=== PATIENT | male | born 1985 | race Caucasian/White ===

== ENCOUNTER 2019-11-04 10:54 | Emergency (ER) | payer SELFPAY ==
[2019-11-04 10:55] VITALS: BP 164/98; PULSE 104; RESP 18; TEMP 36.9; O2SAT 94; BMI 27.0
--- NOTE | 2019-11-04 10:58 | ED_ITS ---
Entered by Ara Cuenca acting as scribe for Norma Hunt Nov 04, 2019 10:54 HPI - General Adult General: Chief complaint: Upper Respiratory Infection Stated complaint: cough and aches Time Seen by Provider: 11/04/19 10:59 Source: patient and RN notes reviewed Mode of arrival: ambulatory Limitations: no limitations History of Present Illness: HPI narrative: 34 yo male presents to ED with complaints of congestion and achy joints. He is subjectively febrile. He said he has had this for 2 days. 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 MD complaint: flu-like symptoms Onset (ago): day(s) (2) Location: chest Radiation: non-radiation Severity: mild Quality: aching (joints) Pain Consistency: constant Relieving factors: none Exacerbating factors: none Associated symptoms: Reports cough, malaise, nausea and other (joint aches, subjectively febrile, chest congestion); Deny chest pain, confusion, dyspnea, headache(s), rash, palpitations, syncope or vomiting Treatments prior to arrival: none Review of Systems General: Reports: other (negative unless marked) Const: Reports: malaise Eyes: Denies: change in vision or blurry vision ENMT: Denies: throat pain, painful swallowing, hoarseness, ear pain, ear discharge, Change in hearing or nasal discharge Card: Denies: chest pain, palpitations, irregular heart rhythm, syncope, pre- syncope, shortness of breath on exertion or shortness of breath when lying down Resp: Denies: shortness of breath, productive cough, non-productive cough, wheezing or coughing up blood GI: Reports: nausea; Denies: abdominal pain, vomiting, vomiting blood, coffee grounds in vomit, diarrhea, constipation, cramping, blood in stool or black tarry stool : Denies: flank pain, difficulty urinating, painful urination, urinary frequency, urinary urgency, decreased urine ouput, urinary incontinence or blood in urine Musc: Denies: neck pain, back pain, extremity pain, extremity swelling, joint swelling, joint warmth or joint stiffness Skin/Breast: Denies: rash, skin tenderness or yellow skin Neuro: Denies: headache, numbness in extremities, weakness in extremities, changes in sensation, lack of coordination, difficulty walking, dizziness, vertigo or confusion Endo: Denies: excessive thirst, tired all the time, cold intolerance, excessive sweating, flushing or hot flashes Papito/Lymph: Denies: easy bruising, easy bleeding, petechiae or enlarged lymph nodes All/Imm: Denies: hives, throat swelling, tongue swelling, facial swelling or acute wheezing PFSH ED PFSH: Social History (Updated 10/27/19 @ 13:56 by MARY LOU Forde) Smoking and tobacco status: current every day smoker Alcohol intake: current Alcohol intake frequency: holidays/special occasions only History of recent travel: No Current gender identity: Male Physical Exam Const: COMMON NORMALS: no apparent distress, oriented x3, no limitations, healthy appearing and well nourished EXAM LIMITATIONS: no altered mental status GENERAL APPEARANCE: cooperative, well kempt and well developed ORIENTATION/CONSCIOUSNESS: Yes awake HENMT: COMMON NORMALS: normocephalic, head/scalp atraumatic, hearing grossly normal bilaterally, external ears normal, EAC's normal, external nose normal and moist oral mucous membranes HEAD & SCALP: normal to inspection, normocephalic and atraumatic FACE & SINUS: normal facial exam and face symmetric NOSE: external nose normal and nares normal EXTERNAL EAR: Yes external ears normal EXTERNAL AUDITORY CANAL: EAC's normal MOUTH: oral and palatal mucosa normal and tongue normal Eye: COMMON NORMALS: PERRL, EOMs intact bilaterally, conjunctivae normal and no scleral icterus GENERAL EYE: normal appearance of both eyes and normal light reflex CONJUNCTIVA: Yes conjunctivae normal SCLERA: sclerae normal CORNEA: Yes corneas normal PUPIL: Yes PERRL DIRECT OPHTHALMOSCOPY: Yes normal light reflex Neck/C-Spine: COMMON NORMALS: full ROM, no lymphadenopathy, supple, no meningeal signs and no JVD GENERAL: Yes normal visual inspection and Yes trachea midline CERVICAL SPINE: Yes cervical ROM normal Chest: COMMONS NORMALS: inspection of chest normal and palpation of chest normal Resp: COMMON NORMALS: normal respiratory effort, no retractions, no use of accessory muscles and clear to auscultation bilaterally EFFORT & INSPECTION: Yes able to speak in complete sentences AUSCULTATION: clear to auscultation bilaterally OTHER: chest congestion Cardio: COMMON NORMALS: no JVD, regular rhythm, S1 normal heart sound, S2 normal heart sound, no gallops, no clicks, no murmurs and no rub JUGULAR VENOUS DISTENTION: no JVD RATE: tachycardic RHYTHM: regular rhythm HEART SOUNDS: S1 normal and S2 normal GI: COMMON NORMALS: soft to palpation, non-tender, no hepatosplenomegaly and no masses INSPECTION: Yes normal to inspection PALPATION: Yes soft and Yes no hepatosplenomegaly : COMMON NORMALS: Yes no CVA tenderness BLADDER/KIDNEY EXAM: Yes no CVA tenderness Back/Pelvis: COMMON NORMALS: no CVA tenderness, thoracic and lumbar spine normal to inspection, no thoracic nor lumbar tenderness and thoraco-lumbar ROM normal Extremity: COMMON NORMALS: normal to inspection, full ROM, normal capillary refill, no joint enlargement, no clubbing, cyanosis or edema and no calf tenderness Neuro: COMMON NORMALS: oriented x3, CN's II-XII intact bilaterally, moves all extremities, no focal motor deficits and no sensory deficits noted MENINGEAL SIGNS: Yes no meningeal signs Psych: COMMON NORMALS: mental status grossly normal, thought process normal, cooperative, affect normal, speech normal and activity/motor behavior normal APPEARANCE: Yes well kempt SPEECH: Yes normal speech THOUGHT PROCESS: normal thought process Skin: COMMON NORMALS: no rashes or lesions noted, skin turgor normal, no jaundice, no petechiae and no mottling GENERAL SKIN EXAM: no rashes or lesions noted and turgor normal Course Vital Signs: Vital signs: Vital Signs Temperature 98.4 F 11/04/19 10:55 Pulse Rate 104 H 11/04/19 10:55 Respiratory Rate 18 11/04/19 10:55 Blood Pressure 164/98 11/04/19 10:55 Pulse Oximetry 94 11/04/19 10:55 MDM - General Adult MDM Narrative: Medical decision making narrative: The case was reviewed with the [facility] department Dr. Brown. The patient needs to stay in his home for the next 10 to 14 days for self quarantine. His was present with him I have informed her she needs to do the same. We will contact him if he test positive for the code with 19 virus. At this time I will place him on doxycycline as he he appears to have some bibasilar infiltrates to my eye although this was not read this way by the radiologist. The patient understands these instructions and states he will follow through with them as instructed. Lab Data: Labs: Lab Results 11/04/19 11/04/19 11/04/19 Range/Units 11:33 11:45 11:45 WBC 14.4 H (4.0-10.0) 10^3/ uL RBC 5.30 (4.1-5.3) 10^6/u L Hgb 15.0 (11.7-16.6) g/dL Hct 43.7 (42.0-52.0) % MCV 82.5 (80-94) fL MCH 28.3 (28.0-34.0) pg MCHC 34.3 (30.0-36.0) g/dL RDW 12.9 (12.1-15.1) % Plt Count 247 (130-400) 10^3/c mm MPV 10.9 H (7.4-10.4) fL Neut % (Auto) 77.9 % Lymph % (Auto) 12.6 % [place] % (Auto) 7.9 % Eos % (Auto) 0.6 % Baso % (Auto) 0.4 % Neut # (Auto) 11.2 H (1.8-7.7) 10^3/u L Lymph # (Auto) 1.8 (0.8-4.8) 10^3/u L [place] # (Auto) 1.1 H (0.2-0.9) 10^3/u L Eos # (Auto) 0.1 (0.0-0.8) 10^3/u L Baso # (Auto) 0.1 (0.0-0.1) 10^3/u L Nucleated RBC % (a uto) 0 % Nucleated RBCs # 0.0 /100WBC Sodium 136 (136-145) mmol/L Potassium 4.0 (3.5-5.1) mmol/L Chloride 98 (98-107) mmol/L Carbon Dioxide 25 (22-29) mmol/L Anion Gap 17.0 (5-19) BUN 14 (6-20) mg/dL Creatinine 0.9 (0.7-1.2) mg/dL GFR Calculation 95.5 (90-130) mL/min Glucose 96 (65-115) mg/dL Calculated Osmolal ity 278 L (285-295) mOsm/k g Calcium 10.0 (8.5-10.5) mg/dL Total Bilirubin 0.7 (0.15-1.2) mg/dL AST 20 (0-40) U/L ALT 29 (0-41) U/L Alkaline Phosphata se 77 (40-130) IU/L Total Protein 7.9 (6.6-8.7) g/dL Albumin 4.7 (3.5-5.2) g/dL Globulin 3.2 (1.3-4.6) g/dL Influenza Type A A g (Negative) POC Influenza B Ag (Negative) RSV Antigen Negative (Negative) 11/04/19 Range/Units 11:45 WBC (4.0-10.0) 10^3/ uL RBC (4.1-5.3) 10^6/u L Hgb (11.7-16.6) g/dL Hct (42.0-52.0) % MCV (80-94) fL MCH (28.0-34.0) pg MCHC (30.0-36.0) g/dL RDW (12.1-15.1) % Plt Count (130-400) 10^3/c mm MPV (7.4-10.4) fL Neut % (Auto) % Lymph % (Auto) % [place] % (Auto) % Eos % (Auto) % Baso % (Auto) % Neut # (Auto) (1.8-7.7) 10^3/u L Lymph # (Auto) (0.8-4.8) 10^3/u L [place] # (Auto) (0.2-0.9) 10^3/u L Eos # (Auto) (0.0-0.8) 10^3/u L Baso # (Auto) (0.0-0.1) 10^3/u L Nucleated RBC % (a uto) % Nucleated RBCs # /100WBC Sodium (136-145) mmol/L Potassium (3.5-5.1) mmol/L Chloride (98-107) mmol/L Carbon Dioxide (22-29) mmol/L Anion Gap (5-19) BUN (6-20) mg/dL Creatinine (0.7-1.2) mg/dL GFR Calculation (90-130) mL/min Glucose (65-115) mg/dL Calculated Osmolal ity (285-295) mOsm/k g Calcium (8.5-10.5) mg/dL Total Bilirubin (0.15-1.2) mg/dL AST (0-40) U/L ALT (0-41) U/L Alkaline Phosphata se (40-130) IU/L Total Protein (6.6-8.7) g/dL Albumin (3.5-5.2) g/dL Globulin (1.3-4.6) g/dL Influenza Type A A g Negative (Negative) POC Influenza B Ag Negative (Negative) RSV Antigen (Negative) Imaging Data^: CXR: Radiologist's impression: [place] [address] XRay Report Signed Patient: David Rosario #: [id number] : 1985Acct#:[id number] Age/Sex: 34 / MADM Date: 11/04/19 Loc: [facility]/Bed: Attending Dr: Ordering Provider/Ordering MD: Norma Hunt DO Date of Service: 11/04/19 Procedure(s): XR chest 1V portable [id number] Accession Number(s): [id number] Report Number: [id number] WS: [id number] Portable AP upright chest, 11/04/2019 Clinical Data: cough Comparison: Portable chest, 02/07/2019. Findings: No nodules, masses or effusions are seen. The heart is normal. The pulmonary vascularity is not increased. No pneumonia or pneumothorax is seen. XR/XR chest 1V portable [id number] Impression: Negative chest. Dictated By:Rosario Willis MD Signed By:Rosario Willis MDSigned Date/Time:11/04/19 1136 DD/ Discharge Plan Discharge Patient Disposition: Home, Self-Care Clinical Impression: Viral infection Condition: Stable Prescriptions: No Action pantoprazole 40 mg tablet,delayed release (DR/EC) 40 mg PO QAM RF: 0 duloxetine 40 mg capsule,delayed release(DR/EC) 40 mg PO ONCE 90 Days Qty: 90 RF: 3 Discharge Orders: Discharge Order (Routine); Ordered 11/04/19 Ordered By: Norma Hunt Referrals: Martin Bhat MD [Primary Care Provider] - 2 weeks Discharge Diet: Advance as tolerated Discharge Activity: Increase activity as tolerated Patient Instructions: Viral Pneumonia (ED), Viral Syndrome (ED) Activity Restrictions/Additional Instructions: Please return to the ER immediately for any of the signs or symptoms listed on your discharge instruction sheets, worsening/changing of your symptoms, you are not getting better as quickly as expected, or for ANY other cause or concerns. Stay quarantined in your home along with your for the next 10 to 14 days. You will be contacted at that phone number provided if you test positive for COVID 19. Return to the ER if you worsen, become short of breath, began to vomit or have any other concerns. Coding Level of Care Code ED Lan Specialist for Chg Fwd Exam Comprehensive The documentation recorded by the [facility]tt Valerie R, accurately reflects the service I personally performed and the decisions made by me, Norma Hunt Nov 04, 2019 10:54
--- NOTE | 2019-11-04 11:09 | XR_ITS ---
WS: [id number] Portable AP upright chest, 11/04/2019 Clinical Data: cough Comparison: Portable chest, 02/07/2019. Findings: No nodules, masses or effusions are seen. The heart is normal. The pulmonary vascularity is not increased. No pneumonia or pneumothorax is seen. XR/XR chest 1V portable [id number] Impression: Negative chest.
[2019-11-04 11:55] LABS: Basophils # 0.1 10^3/uL (0.0-0.1); Basophils % 0.4 %; Eosinophils # 0.1 10^3/uL (0.0-0.8); Eosinophils % 0.6 %; Hematocrit 43.7 % (42.0-52.0); Lymphocytes # 1.8 10^3/uL (0.8-4.8); Lymphocytes % 12.6 %; Mean Corpuscular HGB Conc 34.3 g/dL (30.0-36.0); Mean Corpuscular Hemoglobin 28.3 pg (28.0-34.0); Mean Corpuscular Volume 82.5 fL (80-94); Mean Platelet Volume 10.9 fL (7.4-10.4); Monocytes # 1.1 10^3/uL (0.2-0.9); Monocytes % 7.9 %; Neutrophils # 11.2 10^3/uL (1.8-7.7); Neutrophils % 77.9 %; Nucleated Red Blood Cells % 0 %; Platelet Count 247 10^3/cmm (130-400); Red Cell Distribution Width 12.9 % (12.1-15.1); White Blood Count 14.4 10^3/uL (4.0-10.0)
[2019-11-04 12:18] LABS: Influenza A by IFA Negative (Negative); Influenza B by IFA Negative (Negative)
[2019-11-04 12:29] LABS: Alanine Aminotransferase 29 U/L (0-41); Albumin Level 4.7 g/dL (3.5-5.2); Alkaline Phosphatase 77 IU/L (40-130); Aspartate Amino Transferase 20 U/L (0-40); Blood Urea Nitrogen 14 mg/dL (6-20); Carbon Dioxide 25 mmol/L (22-29); Chloride 98 mmol/L (98-107); Globulin 3.2 g/dL (1.3-4.6); Glomerular Filtration Rate 95.5 mL/min (90-130); Glucose 96 mg/dL (65-115); Osmolality Calculated 278 mOsm/kg (285-295); Sodium 136 mmol/L (136-145); Total Bilirubin 0.7 mg/dL (0.15-1.2); Total Protein 7.9 g/dL (6.6-8.7)
[2019-11-04 15:00] VITALS: BP 160/100; PULSE 91; RESP 18; TEMP 37.3; O2SAT 93
== END 2019-11-04 15:03 | disposition home or self-care (01) ==
PROVIDERS: Emergency Provider Emergency Medicine; PCP Internal Medicine
DX: B34.9 Viral infection, unspecified (principal); F17.200 Nicotine dependence, unspecified, uncomplicated
CPT/HCPCS: 12345; 71045; 80053; 85025; 87040; 87420; 87635; 87804; 94799; 99281; 99283

== ENCOUNTER 2019-11-06 17:20 | Emergency (ER) | payer SELFPAY ==
--- NOTE | 2019-11-06 17:27 | PC.NURSE ---
Pt was instructed to come to ED to be swabbed for COVID-19 virus for send out testing. Pt arrived in ambulance bay and nasal swab was performed by this nurse, labeled and sent to lab. Lab filled out appropriate requisition forms with instructions to defer to Dr Borrego for any needs.
[2019-11-15 08:56] LABS: Miscellaneous Test NOT DETECTED
== END 2019-11-06 17:32 | disposition left against medical advice (07) ==
PROVIDERS: Family Medicine; Emergency Provider Emergency Medicine; PCP Internal Medicine
DX: B34.9 Viral infection, unspecified (principal); F17.210 Nicotine dependence, cigarettes, uncomplicated
CPT/HCPCS: 87635; 99281; 99282

== ENCOUNTER 2020-03-24 09:42 | Emergency (ER) | payer SELFPAY ==
[2020-03-24 10:13] VITALS: BP 156/102; PULSE 61; RESP 18; TEMP 36.6; O2SAT 97; BMI 28.5
--- NOTE | 2020-03-24 10:17 | PC.NURSE ---
Due to patient complaint of sore throat. Rapid strep tested ordered and collected at this time. Specimen took to lab.
[2020-03-24 10:58] VITALS: BP 162/100; PULSE 59; RESP 16; O2SAT 97
--- NOTE | 2020-03-24 11:22 | ED_ITS ---
HPI - General Adult General: Chief complaint: General Medical Stated complaint: nausea/sore throat/dizzy Time Seen by Provider: 03/24/20 11:15 History of Present Illness: HPI narrative: Patient states throat still sore and feels nauseated Onset (ago): day(s) Associated symptoms: Deny chest pain, dyspnea, headache(s), nausea, rash or vomiting Review of Systems Const: Denies: fever(s), chills or body aches Eyes: Denies: change in vision or blurry vision ENMT: Reports: throat pain; Denies: nasal congestion Card: Denies: chest pain or dyspnea on exertion Resp: Denies: dyspnea, productive cough or non-productive cough GI: Denies: abdominal pain, nausea or vomiting : Denies: difficulty urinating Musc: Denies: extremity pain Skin/Breast: Denies: rash Neuro: Denies: headache(s) Psych: Denies: anxiety or depression Papito/Lymph: Denies: easy bruising PFSH ED PFSH: Medical History (Updated 03/24/20 @ 11:22 by MABEL Thomas) IBS (irritable bowel syndrome) Social History Smoking and tobacco status: current every day smoker Alcohol intake: current Alcohol intake frequency: holidays/special occasions only History of recent travel: No Current gender identity: Male Physical Exam Const: COMMON NORMALS: no acute distress, average body habitus and patient oriented x3 HENMT: COMMON NORMALS: normocephalic HEAD & SCALP: normal to inspection and normocephalic FACE & SINUS: normal facial exam OTHER: Throat with slight redness no abscesses noted no lymphadenopathy noted Eye: COMMON NORMALS: conjunctivae normal GENERAL EYE: appearance normal, both eyes and all related structures CONJUNCTIVA: Yes conjunctivae normal Neck/C-Spine: COMMON NORMALS: no JVD Chest: COMMONS NORMALS: normal inspection of the chest Resp: COMMON NORMALS: normal respiratory effort and clear to auscultation bilaterally AUSCULTATION: clear to auscultation bilaterally Cardio: COMMON NORMALS: no JVD, regular rate and regular rhythm RATE: regular rate RHYTHM: regular rhythm GI: COMMON NORMALS: Normal to inspection, nondistended, normoactive bowel sounds present Extremity: COMMON NORMALS: normal to inspection and full ROM Neuro: COMMON NORMALS: patient oriented x3 Course Vital Signs: Vital signs: Vital Signs Temperature 97.9 F 03/24/20 10:13 Pulse Rate 59 L 03/24/20 10:58 Respiratory Rate 16 03/24/20 10:58 Blood Pressure 162/100 03/24/20 10:58 Pulse Oximetry 97 03/24/20 10:58 Discharge Plan Discharge Patient Disposition: Home Clinical Impression: Acute sore throat Condition: Stable Prescriptions: New Zofran 4 mg tablet 4 mg PO Q8H PRN (Reason: nausea and vomiting) 3 Days Qty: 10 RF: 0 Lidocaine Viscous 2 % solution 7.5 ml MUCOUS MEM TID PRN (Reason: pain) Qty: 100 RF: 0 No Action pantoprazole 40 mg tablet,delayed release (DR/EC) 40 mg PO QAM RF: 0 duloxetine 40 mg capsule,delayed release(DR/EC) 40 mg PO DAILY RF: 0 Discharge Orders: Discharge Order (Routine); Ordered 03/24/20 Ordered By: Jon Cuba Referrals: Martin Bhat MD [Primary Care Provider] - Discharge Diet: Usual diet Discharge Activity: Increase activity as tolerated Patient Instructions: Pharyngitis (ED) Activity Restrictions/Additional Instructions: Follow-up with medical provider as directed. Take medications as prescribed. Return to the ER or your medical provider if condition worsens. Please read and understand discharge instructions. If any questions ask please. Coding Level of Care Code ED Community Service Officer Coordinator for Natali Fwd Exam Comprehensive
[2020-03-24 12:53] LABS: Rapid Strep A Test Negative (Negative)
== END 2020-03-24 11:47 | disposition home or self-care (01) ==
PROVIDERS: Emergency Provider Nurse Practitioner Family; PCP Internal Medicine
DX: J02.9 Acute pharyngitis, unspecified (principal); F17.210 Nicotine dependence, cigarettes, uncomplicated
CPT/HCPCS: 12345; 87081; 87880; 99281; 99282

== ENCOUNTER → 2020-04-28 11:00 | Outpatient (BNVA) | payer SELFPAY | PROVIDERS: PCP Internal Medicine; Visit Provider Nurse Practitioner Family | DX: J06.9 Acute upper respiratory infection, unspecified (principal); Z20.818 Contact with and (suspected) exposure to other bacterial communicable diseases | CPT/HCPCS: 87635 ==

== ENCOUNTER → 2020-05-24 16:02 | Outpatient (BNVA) | payer OTHER, SELFPAY | PROVIDERS: PCP Internal Medicine; Visit Provider Nurse Practitioner Family | DX: Z11.59 Encounter for screening for other viral diseases (principal); Z20.828 Contact with and (suspected) exposure to other viral communicable diseases | CPT/HCPCS: 87635 ==

== ENCOUNTER → 2020-08-07 11:43 | Outpatient (BNVA) | payer OTHER, SELFPAY | PROVIDERS: PCP Internal Medicine; Visit Provider Nurse Practitioner Family | DX: Z20.828 Contact with and (suspected) exposure to other viral communicable diseases (principal); R43.0 Anosmia; J06.9 Acute upper respiratory infection, unspecified | CPT/HCPCS: 87635 ==

== ENCOUNTER → 2020-10-16 11:52 | Outpatient (BNVA) | payer OTHER, SELFPAY | PROVIDERS: PCP Internal Medicine; Visit Provider Nurse Practitioner Family | DX: Z20.828 Contact with and (suspected) exposure to other viral communicable diseases (principal) | CPT/HCPCS: 87635 ==

== ENCOUNTER 2022-05-27 00:27 | Emergency (ER) | payer OTHER, SELFPAY ==
[2022-05-27 00:34] VITALS: BP 159/85; PULSE 69; RESP 20; TEMP 36.2; O2SAT 100; BMI 28.7
--- NOTE | 2022-05-27 01:13 | ECG_ITS ---
[facility] Test Date: 2022-05-27 Pat Name: David Rosario Department: Room: Gender: Male Ammonium Nitrate Neutralizer: : 1985 Requested By: Cristi Starkey Order Number: [id number] Alvaro MD: Elmer Cabrera M.D. Measurements Intervals Melber Rate: 66 P: 9 AL: 183 QRS: 41 QRSD: 89 T: 55 QT: 382 QTc: 401 Interpretive Statements SINUS RHYTHM Compared to ECG 02/07/2019 09:16:01 Left ventricular hypertrophy no longer present ST (T wave) deviation no longer present Electronically Signed On 05-27-2022 17:38:40 CDT by Elmer Cabrera M.D. [email or web address]
--- NOTE | 2022-05-27 01:14 | XRR_ITS ---
PROCEDURE INFORMATION: Exam: XR Chest Exam date and time: 05/27/2022 1:34 AM Age: 36 years old Clinical indication: Shortness of breath; Chest pressure; Patient HX: Left sided chest pain, shob; Additional info: SOB TECHNIQUE: Imaging protocol: Radiologic exam of the chest. Views: 1 view. COMPARISON: CR XR chest 1V portable [id number] 11/04/2019 11:22 AM FINDINGS: Lungs: Patchy and strandy opacities are present in the lower hemithoraces bilaterally, left prominent than right, findings that may represent basilar atelectasis versus pneumonia. Pleural spaces: Unremarkable. No pleural effusion. No pneumothorax. Heart/Mediastinum: Unremarkable. No cardiomegaly. Bones/joints: Unremarkable. XR/XR chest 1V portable [id number] IMPRESSION: 1. Patchy and strandy opacities in the lung bases bilaterally, left prominent than right may represent atelectasis although a bilateral basilar pneumonia cannot be excluded.
[2022-05-27 01:15] VITALS: BP 131/52; PULSE 76; RESP 18; O2SAT 95
[2022-05-27 01:23] LABS: Basophils # 0.1 10^3/uL (0.0-0.1); Basophils % 0.8 %; Eosinophils # 0.2 10^3/uL (0.0-0.8); Eosinophils % 2.3 %; Hematocrit 48.8 % (42.0-52.0); Hemoglobin 15.9 g/dL (11.7-16.6); Lymphocytes % 30.8 %; Mean Corpuscular HGB Conc 32.6 g/dL (30.0-36.0); Mean Corpuscular Hemoglobin 28.6 pg (28.0-34.0); Mean Corpuscular Volume 87.8 fl (80-94); Monocytes # 0.7 10^3/uL (0.2-0.9); Monocytes % 6.6 %; Neutrophils # 5.76 10^3/uL (1.8-7.7); Neutrophils % 58.9 %; Nucleated Red Blood Cells % 0 %; Platelet Count 282 10^3/cmm (130-400); Red Blood Count 5.56 10^6/uL (4.1-5.3); White Blood Count 9.8 10^3/uL (4.0-10.0)
[2022-05-27 01:31] LABS: D Dimer <= 0.27 ug/mIFEU (0-0.59)
[2022-05-27 01:37] LABS: Lactic Sepsis W/Reflex 1.5 mmol/L (0.5-2.2)
[2022-05-27 01:38] VITALS: BP 128/89; PULSE 66; RESP 20; O2SAT 97
[2022-05-27 01:48] LABS: Anion Gap 17.2 (5-19); Blood Urea Nitrogen 20 mg/dL (6-20); Calcium 10.2 mg/dL (8.5-10.5); Carbon Dioxide 25 mmol/L (22-29); Chloride 100 mmol/L (98-107); Glomerular Filtration Rate 83.6 mL/min (90-130); Glucose 70 mg/dL (65-115); NT Pro B Type Natriuretic Pept 31 pg/mL (0-125); Osmolality Calculated 287 mOsm/kg (285-295); Potassium 4.2 mmol/L (3.5-5.1); Sodium 138 mmol/L (136-145)
[2022-05-27] MEDS: dexamethasone 4 mg/mL INJ 8 MG IVP (02:06)
[2022-05-27] MEDS: ketorolac 30 mg/mL INJ 15 MG IVP (02:09)
[2022-05-27 02:14] VITALS: BP 128/90; PULSE 61; RESP 18; O2SAT 98
[2022-05-27 02:20] LABS: Troponin T (5th) Once 6 ng/L (0-15)
--- NOTE | 2022-05-27 02:30 | ED_ITS ---
HPI - SOB/Dyspnea General: Chief Complaint: Shortness of Breath/Dyspnea Stated Complaint: sob Time Seen by Provider: 05/27/22 00:56 Source: patient History of Present Illness: HPI Narrative: 36-year-old male presenting with some shortness of breath. He splinting to breathe. He noticed this a couple hours before arrival at work. He has been coughing some. He had COVID 3 weeks ago, but did not have much cough or shortness of breath with that. He denies any fever. He states that he has had some left-sided chest discomfort for a couple of weeks that is reproducible on the left side. MD elicited complaint: shortness of breath and pain with inspiration Pertinent past history: other Onset (ago): hour(s) Exacerbating factors: lying flat and exertion Relieving factors: nothing Associated symptoms: Reports chest pain, cough and orthopnea; Deny abdominal pain, chest congestion, diaphoresis, dizziness, fever(s), nausea or vomiting Treatment prior to arrival: none Review of Systems Const: Denies: fever(s) or diaphoresis Card: Reports: chest pain and orthopnea Resp: Denies: chest congestion GI: Denies: abdominal pain, nausea or vomiting Musc: Denies: neck pain or back pain Skin/Breast: Denies: rash Neuro: Denies: dizziness PFS ED PFSH: Medical History (Updated 05/27/22 @ 02:37 by Cristi Chatterjee DO) IBS (irritable bowel syndrome) Social History Smoking and tobacco status: current every day smoker Alcohol intake: current Alcohol intake frequency: holidays/special occasions only History of recent travel: No Current gender identity: Male Physical Exam Const: GENERAL APPEARANCE: cooperative; not ill appearing and not frail appearing HENMT: COMMON NORMALS: normocephalic and atraumatic HEAD & SCALP: normocephalic and atraumatic FACE & SINUS: normal facial exam and face symmetric Eye: COMMON NORMALS: Equal, round and reactive pupils present and EOMs intact bilaterally PUPIL: Yes Equal, round and reactive pupils present Neck/C-Spine: GENERAL: Yes normal visual inspection and Yes trachea midline Chest: COMMONS NORMALS: normal inspection of the chest CHEST: Yes Symmetrical chest wall rise and Yes tenderness (Left mid chest, mid axillary) Resp: COMMON NORMALS: No retractions, No use of accessory muscles and clear to auscultation bilaterally EFFORT & INSPECTION: Yes tachypneic AUSCULTATION: clear to auscultation bilaterally Cardio: COMMON NORMALS: regular rate and regular rhythm RATE: regular rate RHYTHM: regular rhythm GI: COMMON NORMALS: Normal to inspection, nondistended, normoactive bowel sounds present, Soft to palpation and non-tender PALPATION: Yes Soft to palpation Extremity: COMMON NORMALS: no pedal edema Neuro: EDWARD COMA SCALE: document GCS findings Edward coma scale eye opening: Spontaneous Nickerson coma scale verbal response: Orientated Edward coma scale motor response: Obey commands Nickerson coma scale total score: 15 Skin: COMMON NORMALS: no rashes or lesions noted GENERAL SKIN EXAM: no rashes or lesions noted Course Vital Signs: Vital signs: Vital Signs Temperature 97.1 F L 05/27/22 00:34 Pulse Rate 57 L 05/27/22 02:32 Respiratory Rate 18 05/27/22 02:32 Blood Pressure 119/80 05/27/22 02:32 Pulse Oximetry 97 05/27/22 02:32 Oxygen Delivery Me thod 05/27/22 00:34 MDM - SOB/Dyspnea Medical Decision Making Chest x-ray shows some bibasilar atelectasis versus pneumonitis, left worse than right. CBC is normal. BMP is normal. Troponin is 6. EKG is normal with a normal sinus rhythm, normal axis and intervals and no concerning ST elevation. There is some J-point elevation present. Lactic acid is 1.5. D-dimer is nondetectable. He will be treated for pneumonitis. Lab Data : 05/27/22 01:10 05/27/22 01:10 Labs/Radiology: Radiology Impressions Chest X-Ray 05/27/22 01:14 IMPRESSION: 1. Patchy and strandy opacities in the lung bases bilaterally, left prominent than right may represent atelectasis although a bilateral basilar pneumonia cannot be excluded. Laboratory Results WBC 9.8 10^3/uL (4.0-10.0) 05/27/22 01:10 RBC 5.56 10^6/uL (4.1-5.3) H 05/27/22 01:10 Hgb 15.9 g/dL (11.7-16.6) 05/27/22 01:10 Hct 48.8 % (42.0-52.0) 05/27/22 01:10 MCV 87.8 fl (80-94) 05/27/22 01:10 MCH 28.6 pg (28.0-34.0) 05/27/22 01:10 MCHC 32.6 g/dL (30.0-36.0) 05/27/22 01:10 RDW 12.0 % (12.1-15.1) L 05/27/22 01:10 Plt Count 282 10^3/cmm (130-400) 05/27/22 01:10 MPV 11.0 fL (7.4-10.4) H 05/27/22 01:10 Neut % (Auto) 58.9 % 05/27/22 01:10 Lymph % (Auto) 30.8 % 05/27/22 01:10 Frio % (Auto) 6.6 % 05/27/22 01:10 Eos % (Auto) 2.3 % 05/27/22 01:10 Baso % (Auto) 0.8 % 05/27/22 01:10 Neut # (Auto) 5.76 10^3/uL (1.8-7.7) 05/27/22 01:10 Lymph # (Auto) 3.0 10^3/uL (0.8-4.8) 05/27/22 01:10 Frio # (Auto) 0.7 10^3/uL (0.2-0.9) 05/27/22 01:10 Eos # (Auto) 0.2 10^3/uL (0.0-0.8) 05/27/22 01:10 Baso # (Auto) 0.1 10^3/uL (0.0-0.1) 05/27/22 01:10 Nucleated RBC % (auto) 0 % 05/27/22 01:10 Nucleated RBCs # 0.0 /100WBC 05/27/22 01:10 D-Dimer <= 0.27 ug/mIFEU (0-0.59) 05/27/22 01:10 Sodium 138 mmol/L (136-145) 05/27/22 01:10 Potassium 4.2 mmol/L (3.5-5.1) 05/27/22 01:10 Chloride 100 mmol/L (98-107) 05/27/22 01:10 Carbon Dioxide 25 mmol/L (22-29) 05/27/22 01:10 Anion Gap 17.2 (5-19) 05/27/22 01:10 BUN 20 mg/dL (6-20) 05/27/22 01:10 Creatinine 1.0 mg/dL (0.7-1.2) 05/27/22 01:10 GFR Calculation 83.6 mL/min (90-130) L 05/27/22 01:10 Glucose 70 mg/dL (65-115) 05/27/22 01:10 Calculated Osmolality 287 mOsm/kg (285-295) 05/27/22 01:10 Lactic Acid 1.5 mmol/L (0.5-2.2) 05/27/22 01:10 Calcium 10.2 mg/dL (8.5-10.5) 05/27/22 01:10 Troponin T Gen 5 ng/L 6 ng/L (0-15) 05/27/22 01:10 NT-Pro-B Natriuret Pep 31 pg/mL (0-125) 05/27/22 01:10 Discharge Plan Discharge Patient Disposition: Home Clinical Impression: Pneumonitis Condition: Stable Prescriptions: New Medrol (Ferdinand) 4 mg tablets,dose pack See Rx Instructions .ROUTE .COMPLEX Qty: 21 0RF Rx Instructions: orally per package directions doxycycline hyclate 100 mg capsule 100 mg PO BID 7 Days Qty: 14 0RF No Action pantoprazole 40 mg tablet,delayed release (DR/EC) 40 mg PO QAM lisinopril 5 mg tablet 5 mg PO DAILY Discharge Orders: Discharge ED (Routine); Ordered 05/27/22 Ordered By: Cristi Chatterjee Patient Instructions: Pneumonitis (ED) Activity Restrictions/Additional Instructions: Medications as directed. Return for worsening chest discomfort despite treatment, worsening shortness of breath, fever greater than 100 despite 2-3 doses of antibiotics, any other concerning symptoms. Coding Level of Care Code ED Brine Tank Tender for Natali Fwd Exam Comprehensive
[2022-05-27 02:32] VITALS: BP 119/80; PULSE 57; RESP 18; O2SAT 97
[2022-05-27] MEDS: doxycycline 100 mg Tablet PO (02:46)
[2022-05-27 02:48] VITALS: BP 128/76; PULSE 64; RESP 18; O2SAT 96
== END 2022-05-27 02:50 | disposition home or self-care (01) ==
PROVIDERS: Emergency Provider Emergency Medicine
DX: J18.9 Pneumonia, unspecified organism (principal); F17.200 Nicotine dependence, unspecified, uncomplicated; R40.2412 Glasgow coma scale score 13-15, at arrival to emergency department
CPT/HCPCS: 71045; 80048; 83605; 83880; 84484; 85025; 85378; 93005; 96374; 96375; 99285; J1100; J1885

== ENCOUNTER 2022-05-29 14:39 | Emergency (ER) | payer OTHER, SELFPAY ==
[2022-05-29 14:42] VITALS: BP 149/85; PULSE 66; RESP 16; TEMP 36.9; O2SAT 97; BMI 29.1
--- NOTE | 2022-05-29 14:58 | ED_ITS ---
HPI - General Adult General: Chief complaint: General Medical Stated complaint: lingering resp. issues Time Seen by Provider: 05/29/22 14:48 History of Present Illness: Patient is a 36-year-old male comes to the ED with upper respiratory symptoms. Patient was seen here in the ED 2 days ago on May 27 and diagnosed with pneumonitis and put on a prescription for steroid and antibiotic. He has been taking the antibiotic now for 2 days. He still having a cough and not feeling all that well. He says the symptoms are pretty much the same or slightly improving. His main reason for coming into the ED today was to get a work note for tonight because he does not feel like he is w ell enough to work. Reports no other complaints. Associated symptoms: Deny chest pain, dyspnea, headache(s), nausea, rash, palpitations or vomiting Review of Systems Const: Denies: fever(s), chills or fatigue Eyes: Denies: change in vision or eye discomfort ENMT: Denies: throat pain, odynophagia, nasal discharge or nasal congestion Card: Denies: chest pain, palpitations, edema, swelling of feet/ankles, dyspnea on exertion or orthopnea Resp: Reports: non-productive cough; Denies: dyspnea or productive cough GI: Denies: abdominal pain, nausea, vomiting, diarrhea, constipation or hematochezia : Denies: flank pain, difficulty urinating, dysuria or hematuria Musc: Denies: neck pain, back pain or extremity swelling Skin/Breast: Denies: rash or new lesions Neuro: Denies: headache(s), numbness in extremities or weakness in extremities FOR[facility]LY [facility], [facility] ED PFSH: Medical History IBS (irritable bowel syndrome) No pertinent family history Surgical History History of esophagogastroduodenoscopy (EGD) 07/16/2019- GASTRATIS Social History Smoking and tobacco status: current every day smoker Alcohol intake: current Alcohol intake frequency: holidays/special occasions only History of recent travel: No Current gender identity: Male Physical Exam Const: COMMON NORMALS: no acute distress, patient oriented x3, healthy appearing and alert GENERAL APPEARANCE: cooperative and comfortable HENMT: COMMON NORMALS: normocephalic HEAD & SCALP: normocephalic MOUTH: Normal oral and palatal mucosa present THROAT: posterior oropharynx normal and uvula midline Neck/C-Spine: COMMON NORMALS: supple GENERAL: Yes normal visual inspection Resp: COMMON NORMALS: normal respiratory effort, No retractions, No use of accessory muscles and clear to auscultation bilaterally AUSCULTATION: clear to auscultation bilaterally Cardio: COMMON NORMALS: regular rate, regular rhythm, S1 normal heart sound present, S2 normal heart sound present, No gallops present (Cardio), No clicks present (Cardio), No murmurs present (Cardio) and Peripheral pulses 2+ throughout RATE: regular rate RHYTHM: regular rhythm HEART SOUNDS: S1 normal heart sound present and S2 normal heart sound present PERIPHERAL PULSES: Peripheral pulses 2+ throughout GI: COMMON NORMALS: Normal to inspection, nondistended, normoactive bowel sounds present, Soft to palpation, non-tender and no masses PALPATION: Yes Soft to palpation : COMMON NORMALS: Yes no CVA tenderness BLADDER/KIDNEY EXAM: Yes no CVA tenderness Back/Pelvis: COMMON NORMALS: no CVA tenderness Extremity: COMMON NORMALS: normal to inspection Neuro: COMMON NORMALS: patient oriented x3 SENSORIUM/ORIENTATION: Yes alert GAIT: Yes Normal gait present Skin: GENERAL SKIN EXAM: dry skin Course Vital Signs: Vital signs: Vital Signs Temperature 98.5 F 05/29/22 14:42 Pulse Rate 66 05/29/22 14:42 Respiratory Rate 16 05/29/22 14:42 Blood Pressure 149/85 05/29/22 14:42 Pulse Oximetry 97 05/29/22 14:42 [facility] - General Adult Medical Decision Making Patient is a 36-year-old male comes to the ED surgical work note. Patient was seen here in the ED back on May 27 diagnosed with pneumonitis. He has been taking his antibiotic as prescribed and he has seen some mild improvement but does not feel like he is able to work tonight and needs a doctor's note. Vitals are stable. Exam of patient is benign. He appears nontoxic in no acute distress. He is diagnosed with pneumonitis and discharged home. He was given a work note upon discharge. Return to ED precautions given. Follow-up with PCP in the next week for reevaluation. Patient understood and agreed with plan. Discharge Plan Discharge Patient Disposition: Home Clinical Impression: Pneumonitis Condition: Stable Prescriptions: No Action pantoprazole 40 mg tablet,delayed release (DR/EC) 40 mg PO QAM lisinopril 5 mg tablet 5 mg PO DAILY Medrol (Ferdinand) 4 mg tablets,dose pack See Rx Instructions .ROUTE .COMPLEX Qty: 21 0RF Rx Instructions: orally per package directions doxycycline hyclate 100 mg capsule 100 mg PO BID 7 Days Qty: 14 0RF Discharge Orders: Discharge ED (Routine); Ordered 05/29/22 Ordered By: Lalito Dahl Discharge Diet: Regular Discharge Activity: Increase activity as tolerated Activity Restrictions/Additional Instructions: Follow-up with medical provider as directed. Take medications as prescribed. Return to the ER or your medical provider if condition worsens. Please read and understand discharge instructions. Thank you for choosing [facility] for your healthcare needs today. Please realize this is an emergency room and that we are providing you with a medical screening exam and this may not be complete and all inclusive of all the testing and or work up that you may need to determine your ailment or severity of your illness. It is very important that you follow up as instructed or that you return to the Emergency Department should you have concerns or if your condition changes or worsens in any way. Stand Alone Forms: Work/School Release Coding Level of Care Code ED Food Packer for Natali Fwgetachew Exam Comprehensive
== END 2022-05-29 15:44 | disposition home or self-care (01) ==
PROVIDERS: Emergency Provider Physician Assistant
DX: J18.9 Pneumonia, unspecified organism (principal); F17.210 Nicotine dependence, cigarettes, uncomplicated
CPT/HCPCS: 99282

== ENCOUNTER 2022-07-03 23:59 | Emergency (ER) | payer OTHER, SELFPAY ==
[2022-07-04 00:14] VITALS: BP 161/93; PULSE 76; RESP 18; TEMP 36.4; O2SAT 99; BMI 29.1
[2022-07-04 00:18] VITALS: PULSE 70; RESP 17; O2SAT 98
--- NOTE | 2022-07-04 00:32 | ED_ITS ---
HPI - Epistaxis General: Chief complaint: Epistaxis Stated complaint: Nosebleed Time Seen by Provider: 07/04/22 00:02 Source: patient Mode of arrival: ambulatory Limitations: no limitations History of Present Illness: 36-year-old male states that he woke up Having nosebleed to his left nares states has not been able to get it to stop. Does have a history of high blood pressure denies any blood thinner use. Denies any injuries to his nose he is tried placing a cloth over the nare with no success. Associated symptoms: Deny fever(s), headache(s) or vomiting Review of Systems Const: Denies: fever(s), chills, body aches or change in appetite Eyes: Denies: blurry vision or eye discomfort ENMT: Reports: epistaxis Card: Denies: chest pain Resp: Denies: dyspnea GI: Denies: abdominal pain, nausea, vomiting or diarrhea : Denies: dysuria Musc: Denies: neck pain or back pain Skin/Breast: Denies: rash Neuro: Denies: headache(s) Psych: Denies: depression Papito/Lymph: Denies: easy bruising All/Imm: Denies: urticaria PFSH ED PFSH: Medical History IBS (irritable bowel syndrome) No pertinent family history Surgical History History of esophagogastroduodenoscopy (EGD) 07/16/2019- GASTRATIS Social History Smoking and tobacco status: current every day smoker Alcohol intake: current Alcohol intake frequency: holidays/special occasions only History of recent travel: No Current gender identity: Male Physical Exam Const: COMMON NORMALS: no acute distress, patient oriented x3 and healthy appearing HENMT: COMMON NORMALS: normocephalic and atraumatic HEAD & SCALP: normocephalic and atraumatic OTHER: dried blood to left nare Eye: COMMON NORMALS: EOMs intact bilaterally Neck/C-Spine: COMMON NORMALS: full ROM and supple Chest: COMMONS NORMALS: normal inspection of the chest Resp: COMMON NORMALS: normal respiratory effort Cardio: COMMON NORMALS: regular rate, regular rhythm and No murmurs present (Cardio) RATE: regular rate RHYTHM: regular rhythm GI: INSPECTION: Yes normal to inspection Extremity: COMMON NORMALS: normal to inspection and full ROM Neuro: COMMON NORMALS: patient oriented x3, moves all extremities and no focal motor deficits Psych: COMMON NORMALS: mental status grossly normal, Normal thought process present and cooperative THOUGHT PROCESS: Normal thought process present Skin: COMMON NORMALS: no rashes or lesions noted and no wounds GENERAL SKIN EXAM: no rashes or lesions noted Course Vital Signs: Vital signs: Vital Signs Temperature 97.5 F L 07/04/22 00:14 Pulse Rate 70 07/04/22 00:18 Respiratory Rate 17 07/04/22 00:18 Blood Pressure 123/78 07/04/22 01:00 Pulse Oximetry 97 07/04/22 01:00 Oxygen Delivery Me thod 07/04/22 00:14 MDM - Epistaxis Medical Decision Making Patient presents with a nosebleed that resolved he is well-appearing here his blood pressures been normal he is stable for discharge he is to follow-up his PCP and return if worsening he understands agrees plan. Discharge Plan Discharge Patient Disposition: Home Clinical Impression: Epistaxis Condition: Stable Prescriptions: No Action pantoprazole 40 mg tablet,delayed release (DR/EC) 40 mg PO QAM lisinopril 5 mg tablet 5 mg PO DAILY Medrol (Ferdinand) 4 mg tablets,dose pack See Rx Instructions .ROUTE .COMPLEX Qty: 21 0RF Rx Instructions: orally per package directions Discharge Orders: Discharge ED (Routine); Ordered 07/04/22 Ordered By: Genevieve Holcomb Referrals: Chris Galarza MD [Physician] - 1-3 days Discharge Diet: Advance as tolerated Discharge Activity: Resume usual activity Patient Instructions: Nosebleed (ED) Coding Level of Care Code ED Insolvency Practitioner for Chg Fwd Exam Comprehensive
[2022-07-04] MEDS: oxymetazoline 0.05% Nasal Spray 15 mL 2 SPRAY NOSTRIL-B (00:41)
[2022-07-04 00:45] VITALS: O2SAT 97
[2022-07-04 01:00] VITALS: BP 123/78; O2SAT 97
--- NOTE | 2022-07-04 11:22 | DCPLANNER ---
Addendum entered by Kirti Dickerson 07/16/22 13:51: Patient has a follow up appointment scheduled with Dr. Galarza. Original Note: manager business continuity had message to schedule a follow up appointment for patient with ENT, Dr. Glaarza. manager business continuity faxed patients information to the office of Dr. Galarza. Patients information will be reviewed and clinic will call patient with appointment information.
== END 2022-07-04 01:23 | disposition home or self-care (01) ==
PROVIDERS: Emergency Provider Emergency Medicine
DX: R04.0 Epistaxis (principal); F17.210 Nicotine dependence, cigarettes, uncomplicated
CPT/HCPCS: 99283

== ENCOUNTER 2024-01-25 11:45 | Emergency (ER) | payer SELFPAY ==
[2024-01-25 12:03] VITALS: BP 142/83; PULSE 66; RESP 16; TEMP 36.4; O2SAT 97
--- NOTE | 2024-01-25 12:38 | XRR_ITS ---
PROCEDURE INFORMATION: Exam: XR Left Ribs with PA Chest Exam date and time: 01/25/2024 12:46 PM Age: 38 years old Clinical indication: Injury or trauma; Rib area, left side; Blunt trauma; Patient HX: Lt lower anterior rib/chest wall pain post fall; Worse with inspiration TECHNIQUE: Imaging protocol: Radiologic exam of the left ribs with PA chest. Views: 3 views COMPARISON: CR (CHEST, ) 05/27/2022 1:34 AM FINDINGS: Lungs: Minimal bibasilar linear atelectasis. No focal consolidation. Pleural spaces: No distinct pneumothorax. No large pleural effusion. Heart/Mediastinum: Cardiomediastinal silhouette is midline and normal in size. Bones/joints: No acute osseous findings. Specifically, no displaced left rib fractures. XR/XR ribs LT mn 3V w [id number] IMPRESSION: No acute osseous findings. Specifically, no displaced left rib fractures.
[2024-01-25] MEDS: ketorolac 30 mg/mL INJ IM (13:34)
[2024-01-25] MEDS: methocarbamol 750 mg Tablet PO (13:36)
--- NOTE | 2024-01-25 14:02 | W.ED.FALL ---
HPI - Fall General: Chief Complaint: Fall Stated Complaint: left rib pain Time Seen by Provider: 01/25/24 12:37 Source: patient Mode of arrival: ambulatory Limitations: no limitations History of Present Illness: Running with his kitchen today when he had a slip and fall and landed on his left elbow and his left elbow smashed into his chest. Having severe left chest pain difficulty taking deep breaths. moreanterior and lateral left chest. complaint: fall Review of Systems General: Reports: 10 or more systems reviewed and unremarkable except in HPI and below PFSH ED PFSH: Medical History IBS (irritable bowel syndrome) No pertinent family history Surgical History History of esophagogastroduodenoscopy (EGD) 07/16/2019- GASTRATIS Social History Smoking and tobacco/nicotine status: current every day tobacco/nicotine user Alcohol intake: current Alcohol intake frequency: holidays/special occasions only Current gender identity: Male Physical Exam Const: COMMON NORMALS: no acute distress, average body habitus, patient oriented x3, healthy appearing, alert and well nourished GENERAL APPEARANCE: well kempt and well developed HENMT: COMMON NORMALS: normocephalic, atraumatic, external ears normal and moist oral mucous membranes HEAD & SCALP: normocephalic and atraumatic EXTERNAL EAR: Yes external ears normal Eye: COMMON NORMALS: Equal, round and reactive pupils present, EOMs intact bilaterally and conjunctivae normal CONJUNCTIVA: Yes conjunctivae normal PUPIL: Yes Equal, round and reactive pupils present Neck/C-Spine: COMMON NORMALS: full ROM, no lymphadenopathy and supple Chest: COMMONS NORMALS: normal inspection of the chest CHEST: Yes Symmetrical chest wall rise, Yes localized rib tenderness with anteroposterior compression, Yes tenderness (anterior and lateral L chest wall ribs 4-10) and No Surgical scars present (Chest) Resp: COMMON NORMALS: normal respiratory effort, No retractions, No use of accessory muscles and clear to auscultation bilaterally AUSCULTATION: clear to auscultation bilaterally Cardio: COMMON NORMALS: regular rate, regular rhythm, S1 normal heart sound present, S2 normal heart sound present, No gallops present (Cardio), No clicks present (Cardio), No murmurs present (Cardio) and No rub (Cardio) RATE: regular rate RHYTHM: regular rhythm HEART SOUNDS: S1 normal heart sound present, S2 normal heart sound present and no murmurs PERIPHERAL PULSES: other (Radial pulses 2+ and symmetric) GI: COMMON NORMALS: Soft to palpation, non-tender and no masses INSPECTION: No abdominal distension PALPATION: Yes Soft to palpation, No Guarding due to palpation present (GI) and No Rebound tenderness present Extremity: COMMON NORMALS: normal to inspection, full ROM, capillary refill normal and no clubbing, cyanosis or edema Neuro: COMMON NORMALS: patient oriented x3 SENSORIUM/ORIENTATION: Yes alert Psych: APPEARANCE: Yes well kempt Skin: COMMON NORMALS: no rashes or lesions noted, no wounds, turgor normal and no jaundice GENERAL SKIN EXAM: no rashes or lesions noted and turgor normal Course Vital Signs: Vital signs: Vital Signs Temperature 97.6 F 01/25/24 12:03 Pulse Rate 66 01/25/24 12:03 Respiratory Rate 16 01/25/24 12:03 Blood Pressure 142/83 01/25/24 12:03 Pulse Oximetry 97 01/25/24 12:03 Oxygen Delivery Me thod Room Air 01/25/24 12:03 MDM - Fall Medical Decision Making Personally reviewed patient's chest x-ray and I see no acute fractures. Radiology read pending at this time will follow. Patient however will be discharged. Given Toradol and Robaxin and having some relief. Will be discharged with NSAID and muscle relaxer. Medical Records I reviewed the patient's medical records. Lab Data I reviewed the patient's lab results. Radiology Impressions Ribs X-Ray 01/25/24 12:38 IMPRESSION: No acute osseous findings. Specifically, no displaced left rib fractures. XR interpretation done by ED provider, pending radiology final review Discharge Plan Discharge Patient Disposition: Home Clinical Impression: Acute chest wall pain Contusion of rib on left side Qualifiers: Encounter type: initial encounter Qualified Code(s): S20.212A - Contusion of left front wall of thorax, initial encounter Condition: Stable Prescriptions: New methocarbamol 750 mg tablet 750 mg PO TID PRN (Reason: Muscle pain and soreness) 7 Days Qty: 21 0RF ketorolac 10 mg tablet 10 mg PO Q6H PRN (Reason: pain) 5 Days Qty: 20 0RF No Action pantoprazole 40 mg tablet,delayed release (DR/EC) 40 mg PO QAM lisinopril 5 mg tablet 5 mg PO DAILY Medrol (Ferdinand) 4 mg tablets,dose pack See Rx Instructions .ROUTE .COMPLEX Qty: 21 0RF Rx Instructions: orally per package directions Discharge Orders: Discharge ED (Routine); Ordered 01/25/24 Ordered By: Omar Ortiz Discharge Diet: Usual diet Discharge Activity: Resume usual activity Patient Instructions: Rib Contusion (ED) Activity Restrictions/Additional Instructions: I expect some degree of pain to last up to 2 to 3 weeks. The worst will be this week. Do not do any rib binding . It can be useful to hold a pillow against that side of your chest if you need to cough. Follow-up with primary care as needed. Stand Alone Forms: Work/School Release Coding Level of Care Code ED Undraped Artist Model for Natali Roa
[2024-01-25 14:29] VITALS: BP 138/75; PULSE 89; RESP 17; O2SAT 97
== END 2024-01-25 14:29 | disposition home or self-care (01) ==
PROVIDERS: Emergency Provider Emergency Medicine
DX: S20.212A Contusion of left front wall of thorax, initial encounter (principal); R07.89 Other chest pain; Z72.0 Tobacco use; W01.0XXA Fall on same level from slipping, tripping and stumbling without subsequent striking against object, initial encounter
CPT/HCPCS: 71101; 96372; 99284; J1885

== ENCOUNTER → 2024-04-22 11:21 | Outpatient (BNVA) | payer OTHER, SELFPAY | PROVIDERS: Visit Provider Nurse Practitioner Family | DX: R53.83 Other fatigue (principal) | CPT/HCPCS: 87426 ==

== ENCOUNTER 2024-05-03 12:00 | Emergency (ER) | payer OTHER, SELFPAY ==
[2024-05-03 12:22] VITALS: BP 137/87; PULSE 68; TEMP 36.8; O2SAT 97; BMI 27.3
--- NOTE | 2024-05-03 12:26 | USCV_ITS ---
David Rosario Age: 38 Gender: M : 1985 Exam Date: 05/03/2024 12:44 Ordering Phys: Genevieve Holcomb MD Technologist: R Exam Location: [facility]_ Indication: Rt leg pain PROCEDURES: The following venous structures were evaluated: common femoral vein, profunda vein, proximal portion of the greater saphenous vein, superficial femoral vein, and the popliteal vein. In addition, the posterior tibial and peroneal trunk were evaluated. FINDINGS: Normal 2-D Doppler and augmentation and compressibility throughout the lower extremity venous structures. Additional imaging through the proximal calf veins also reveals no thrombus. Limited evaluation of the greater saphenous vein is patent with no thrombus. CONCLUSIONS No DVT right lower extremity. Dr. Tavia Dalton DO (Electronically Signed) Final Date: 03 May 2024 13:16 S
--- NOTE | 2024-05-03 13:01 | ED_ITS ---
HPI - Extremity Problem 2 General: Chief complaint: Extremity Problem,Nontraumatic Stated complaint: lower leg problems Time Seen by Provider: 05/03/24 13:01 Source: patient Mode of arrival: ambulatory Limitations: no limitations History of Present Illness: Patient is a 38-year-old male who presents to ED today with complaint of right lower leg pain over the past 3 days. No known injury or trauma. States he was sent here from the [facility] walk-in clinic for concerns for DVT. Denies previous blood clots. He has not noticed any swelling or color/temperature changes to the extremity. Denies numbness, tingling, loss of sensation. Pain is worse with ambulation/walking. MD Complaint: extremity pain Onset (ago): day(s) Pain Consistency: constant Location: right and lower extremity Quality: burning Radiation: none Relieving factors: immobilization Exacerbating factors: walking Associated symptoms: Reports no associated symptoms; Deny chest pain, fever(s) or rash Related Data Home Medications Medication Instructions Recorded Confirmed omeprazole 20 mg capsule,delayed 20 mg PO DAILY 04/22/24 05/03/24 release Allergies Allergy/AdvReac Type Severity Reaction Status Date / Time No Known Allergies Allergy Verified 05/03/24 12:26 Review of Systems 2 Const: Denies: fever(s) Card: Denies: chest pain Resp: Denies: dyspnea Musc: Reports: extremity pain; Denies: neck pain, back pain, extremity swelling, joint pain, joint swelling, joint redness, joint warmth or limited range of motion Skin/Breast: Denies: rash Neuro: Denies: headache(s), numbness in extremities, weakness in extremities, sensory changes or difficulty walking [facility] ED 2 PFSH: Medical History No pertinent family history IBS (irritable bowel syndrome) Surgical History History of esophagogastroduodenoscopy (EGD) 07/16/2019- GASTRATIS Social History Smoking and tobacco/nicotine status: current every day tobacco/nicotine user Alcohol intake: current Alcohol intake frequency: holidays/special occasions only Current gender identity: Male Physical Exam 2 Const: COMMON NORMALS: no acute distress, average body habitus, patient oriented x3, no limitations, healthy appearing, alert and well nourished Extremity: COMMON NORMALS: normal to inspection, full ROM, capillary refill normal, no joint enlargement, no clubbing, cyanosis or edema, no calf tenderness and no pedal edema GENERAL: Yes normal exam except as noted RIGHT LOWER EXTREMITY: Yes lower leg EXTREMITY IMAGE (FRONT): 1. TTP R anterior lower leg; DP/PT pulses and cap refill normal; sensation intact; no edema or color/temp changes noted to extremity; negative Huan's/no calf pain with squeeze Neuro: COMMON NORMALS: patient oriented x3, moves all extremities, no focal motor deficits, no sensory deficits noted and gait normal S ENSORIUM/ORIENTATION: Yes alert Skin: COMMON NORMALS: no rashes or lesions noted GENERAL SKIN EXAM: no rashes or lesions noted Course 2 Vital Signs: Vital signs: Vital Signs Temperature 98.2 F 05/03/24 12:22 Pulse Rate 68 05/03/24 12:22 Blood Pressure 137/87 05/03/24 12:22 Pulse Oximetry 97 05/03/24 12:22 Oxygen Delivery Me thod Room Air 05/03/24 12:22 MDM - Extremity (Nontraumatic) Medical Decision Making US negative for DVT. Will have CM set him up with a PCP for further evaluation/management. XR interpretation done by ED provider, pending radiology final review (per US tech-negative for DVT) Discharge Plan Discharge Patient Disposition: Home Clinical Impression: Pain of right anterior lower extremity Condition: Stable Prescriptions: No Action omeprazole 20 mg capsule,delayed release(DR/EC) 20 mg PO DAILY Discharge Orders: Discharge ED (Routine); Ordered 05/03/24 Ordered By: Elizabeth Mondragon Activity Restrictions/Additional Instructions: Ultrasound was negative today for blood clot/DVT. As we discussed, I will have case management set you up with a primary care provider for further evaluation in case symptoms do not improve with conservative therapy such as rest, ice, elevation, and anti-inflammatory [id number]-new-[id number] medications such as Motrin or Naproxen. Coding Level of Care Code ED Spool Sorter for Natali Roa
[2024-05-03 13:17] VITALS: BP 135/82; PULSE 65; RESP 16; O2SAT 98
--- NOTE | 2024-05-04 09:11 | DCPLANNER ---
Message sent to Clinic's to establish PCP
== END 2024-05-03 13:17 | disposition home or self-care (01) ==
PROVIDERS: Emergency Provider Physician Assistant
DX: M79.604 Pain in right leg (principal); Z72.0 Tobacco use
CPT/HCPCS: 93971; 99284

== ENCOUNTER → 2024-06-02 14:59 | Outpatient (BNVA) | payer OTHER, SELFPAY | DX: Z76.89 Persons encountering health services in other specified circumstances (principal) | CPT/HCPCS: 80053; 85025 ==

== ENCOUNTER 2025-02-23 07:41 | Emergency (ER) | payer OTHER, SELFPAY ==
--- OUTSIDE RECORDS SUMMARY | 2025-02-23 07:45 | XMS_ITS | Clinical Summary ---
Author Organization [facility] Address [address] [place] [address] Phone Care Team Providers Care Hose Handler Name Role Phone Unavailable Primary Care Provider Unavailabl e Medications diclofenac sodium (VOLTAREN) 1 % gelIndications:Lef t elbow pain,Lateral epicondylitis of left elbow Apply 4 Grams to affected area 4 times daily. 100 Gram Active Active Problems No known active problems Social History Tobacco Use Types Packs/Day Years Used Date Smoking Tobacco: Never Assessed Sex and Gender Information Value Date Recorded Sex Assigned at Not on file Legal Sex Male 12:48 PM CDT Gender Identity Not on file Sexual Orientation Not on file Last Filed Vital Signs Vital Sign Reading Time Taken Comments Blood Pressure 132/76 01/03/2023 2:06 PM CDT Pulse - - Temperature - - Respiratory Rate - - Oxygen Saturation - - Inhaled Oxygen Concentration - - Weight 97.5 kg (215 lb) 01/03/2023 2:06 PM CDT Height 182.9 cm (6') 01/03/2023 2:06 PM CDT Body Mass Index 29.16 01/03/2023 2:06 PM CDT Plan of Treatment Health Maintenance Due Date Last Done Comments DTAP/TDAP/TD VACCINES (1 - Tdap) 2002 HEPATITIS B VACCINES (1 of 3 - 19+ 3-dose series) 2002 INFLUENZA VACCINE (#1) 2024 HPV VACCINES Aged Out No longer eligi ble based on patient's age to complete this topic Insurance VANESSA MOFFETT
--- NOTE | 2025-02-23 07:46 | XR_ITS ---
WS: [id number] XR wrist LT min 3V* [id number] REASON FOR EXAM: injury FINDINGS: No acute fracture identified. The joint spaces of the wrist are intact and well preserved. No radiopaque soft tissue foreign body. XR/XR wrist LT min 3V* [id number] IMPRESSION: No significant abnormality.
[2025-02-23 07:49] VITALS: BP 152/84; PULSE 72; RESP 16; TEMP 36.7; O2SAT 94; BMI 28.5
--- NOTE | 2025-02-23 07:49 | W.ED.FALL ---
HPI - Fall General: Chief Complaint: Extremity Injury, Upper Stated Complaint: lt wrist inj Time Seen by Provider: 02/23/25 07:46 Source: patient Mode of arrival: ambulatory Limitations: no limitations History of Present Illness: 39-year-old male states that he fell yesterday landing on his left wrist. He is been having some increasing pain in that wrist he states at rest the pain is a 3 out of 10 does have some increased pain with range of motion. Denies any other injuries from the fall denies hitting his head. Associated symptoms-after fall: Denies abdominal pain, chest pain, headache(s) or neck pain Related Data Previous Rx's ?Medication ?Instructions ?Recorded lisinopril 10 mg tablet 10 mg PO DAILY #90 tabs 01/26/25 Allergies Allergy/AdvReac Type Severity Reaction Status Date / Time No Known Allergies Allergy Verified 01/26/25 14:54 Review of Systems Const: Denies: fever(s), chills, body aches or change in appetite ENMT: Denies: throat pain or dental pain Card: Denies: chest pain Resp: Denies: dyspnea GI: Denies: abdominal pain, nausea, vomiting or diarrhea Musc: Reports: extremity pain; Denies: neck pain or back pain Skin/Breast: Denies: rash Neuro: Denies: headache(s) PFSH ED PFSH: Medical History Bilateral hand pain GERD (gastroesophageal reflux disease) Encounter to establish care Hypertension No pertinent family history IBS (irritable bowel syndrome) Surgical History History of esophagogastroduodenoscopy (EGD) 07/16/2019- GASTRATIS Social History Smoking and tobacco/nicotine status: current every day tobacco/nicotine user (1 PPD) Alcohol intake: current Alcohol intake frequency: holidays/special occasions only Current gender identity: Male Physical Exam Const: COMMON NORMALS: no acute distress, patient oriented x3 and healthy appearing HENMT: COMMON NORMALS: normocephalic and atraumatic HEAD & SCALP: normocephalic and atraumatic Eye: COMMON NORMALS: conjunctivae normal CONJUNCTIVA: Yes conjunctivae normal Neck/C-Spine: COMMON NORMALS: full ROM and supple Chest: COMMONS NORMALS: normal inspection of the chest Resp: COMMON NORMALS: normal respiratory effort Cardio: COMMON NORMALS: regular rate RATE: regular rate Extremity: COMMON NORMALS: full ROM NARRATIVE EXTREMITY EXAM: Slight tenderness noted left wrist no obvious deformity Neuro: COMMON NORMALS: patient oriented x3, moves all extremities and no focal motor deficits Psych: COMMON NORMALS: mental status grossly normal, Normal thought process present and cooperative THOUGHT PROCESS: Normal thought process present Skin: COMMON NORMALS: no rashes or lesions noted and no wounds GENERAL SKIN EXAM: no rashes or lesions noted Course Vital Signs: Vital signs: Vital Signs Temperature 98.1 F 02/23/25 07:49 Pulse Rate 72 02/23/25 07:49 Respiratory Rate 16 02/23/25 07:49 Blood Pressure 152/84 02/23/25 07:49 Pulse Oximetry 94 02/23/25 07:49 Oxygen Delivery Me thod Room Air 02/23/25 07:49 MDM - Fall Medical Decision Making Patient presents here with wrist injury x-ray shows no fracture likely a wrist sprain no other injuries noted he stable for discharge follow-up PCP return if worsening. Medical Records I reviewed the patient's medical records. XR interpretation done by ED provider, pending radiology final review ED provider radiology interpretation(s): xr l wrist: no acute fx Discharge Plan Discharge Patient Disposition: Home Clinical Impression: Sprain and strain of wrist Condition: Stable Prescriptions: No Action lisinopril 10 mg tablet 10 mg PO DAILY Qty: 90 1RF Discharge Orders: Discharge ED (Routine); Ordered 02/23/25 Ordered By: Genevieve Holcomb Referrals: Elyssa Brooks NP [Primary Care Provider, Family Practice] - 4-7 days Discharge Diet: Advance as tolerated Discharge Activity: Resume usual activity Patient Instructions: Wrist Sprain (ED) Print Language: Ivorian Coding Level of Care Code ED Superintendent Transmission for Natali Roa
[2025-02-23 07:57] VITALS: BP 154/82; PULSE 79; O2SAT 98
== END 2025-02-23 08:01 | disposition home or self-care (01) ==
PROVIDERS: Emergency Provider Emergency Medicine
DX: S63.501A Unspecified sprain of right wrist, initial encounter (principal); F17.210 Nicotine dependence, cigarettes, uncomplicated; I10 Essential (primary) hypertension; W19.XXXA Unspecified fall, initial encounter
CPT/HCPCS: 73110; 99283; J9999

== ENCOUNTER 2025-04-06 13:32 | Outpatient (CLI) | payer OTHER, SELFPAY | END 2025-04-06 13:33 | disposition home or self-care (01) | LOC: SLEEP 13:34 | PROVIDERS: Referring Provider Pediatrics; Visit Provider Internal Medicine Pulmonary Disease | DX: G47.33 Obstructive sleep apnea (adult) (pediatric) (principal) | CPT/HCPCS: G0399 ==

== ENCOUNTER → 2025-07-25 10:18 | Outpatient (BNVA) | payer OTHER, SELFPAY | DX: I10 Essential (primary) hypertension (principal) | CPT/HCPCS: 80053; 84550; 85025 ==